=== PATIENT | female | born 1930 | race Caucasian/White ===

== ENCOUNTER → 2018-04-28 | Outpatient (CLI) | payer MEDICARE, OTHER ==
[~2018-04-28] MED LIST: ASPIR 8181 MG PO; CALCIUM 600 +1 EAC8 PO; CETIRIZINE HCL10 MG PO; FISH OIL 1,2001 EACH PO; FISH OIL300 MG; GLUCOSAMINE CH1 EAC2 PO; LUMIGAN2.5 M1; MIDRIN CAPSULE1 EACH PO; MULTIVITAMINS1 EAC8 PO; OCUVITE TABLET1 EAC1 PO; ONE-A-DAY PO; SARNA ANTI-ITC222 ML; STOOL SOFTENER100 M1 PO; TIMOLOL MALEATE10 M1 OU; VISION FORMULA PO; VITAMIN D-40400 UNIT PO
--- NOTE | 2018-04-28 11:26 | Diagnostic Imaging Report ---
Examination: MRI BRAIN WITHOUT CONTRAST History: TIA for the past 2 weeks. Syncope. Rare headache. Comparison studies: None Technique: Sagittal T2; axial DWI, FLAIR, GRE or SWI, T1, Coronal FLAIR. Intravenous contrast: None Findings: Scalp: No abnormal signal. No masses. Bone marrow: Normal in signal intensity. Brain volume: Mild generalized volume loss. Ventricles: Ex vacuo dilatation. No hydrocephalus. Extra-axial spaces: No abnormalities. Parenchyma: There are patchy and confluent areas of T2/FLAIR hyperintensity in the periventricular and subcortical white matter, nonspecific. No masses, hemorrhage, or acute vascular insults. Suprasellar and sellar region: No abnormalities. Craniocervical junction: No abnormalities. The foramen magnum is patent. No Chiari malformations. Vessels: Normal flow-voids in the arteries and sinuses. Additional findings:None. IMPRESSION: 1. No acute intracranial abnormalities. 2. Moderate chronic microvascular ischemic change (Fazekas type II). 3. Mild generalized volume loss. Signed by: Dr. Mckenzie Bourgeois M.D. on 04/28/2018 11:22 AM
== END ==
LOC: MRI 09:46
PROVIDERS: ATTEND Family Medicine
DX: G45.9 Transient cerebral ischemic attack, unspecified (principal)
CPT/HCPCS: 70551